=== PATIENT | female | born 1940 | race Caucasian/White ===

== ENCOUNTER → 2016-10-06 | Outpatient (CLI) | payer MEDICARE, BC ==
--- NOTE | 2016-10-06 16:36 | MAM ---
EXAM DESCRIPTION: 3D Screening BILATERAL CLINICAL HISTORY: 76 yearsFemaleSCREENING HRT five or more years ago. Postmenopausal. COMPARISON: Digital screening bilateral examination 09/28/2015 and 09/08/2014.. No prior reports available. TECHNIQUE: Bilateral CC and MLO projection full-field images, 3-D tomosynthesis digital mammographic technique. Also bilateral synthesized CC/ MLO full-field images. CAD not utilized. FINDINGS: The breast parenchymal density pattern is: Heterogeneously dense breast tissue, which may obscure small masses. No skin thickening or nipple retraction differences fibroglandular tissues around the posterior nipple line in the anterior two thirds and extending into the upper outer quadrants bilaterally. Bilateral solitary microcalcifications. Bilateral vascular calcifications. No focal, stellate mass or density, focal asymmetry , and no suspicious microcalcifications bilaterally. Stable mammograms compared to the studies August 2014. IMPRESSION: BI-RADS CATEGORY: 2 - BENIGN FINDINGS. FOLLOW UP: Routine digital bilateral screening, one year interval from September 2016. Written communication explaining the findings and follow-up, will be mailed to the patient and referring health care provider. According to the [employer], yearly mammograms are recommended starting at age 40 and continuing as long as a woman is in good health. Any breast change noted on a breast self-exam should be reported promptly to the patient's healthcare provider. Breast MRI is recommended for women with an approximately 20-25% or greater lifetime risk of breast cancer, including women with a strong family history of breast or ovarian cancer and women who have been treated for Hodgkin's disease. A negative mammographic report should not delay tissue diagnosis in patients with significant clinical history or physical findings. Extremely dense breast tissue limits the sensitivity of digital mammography. Electronically signed by: Heath Lei MD 10/06/2016 4:35 PM CDT Workstation: [id number]
== END ==
LOC: MAMMO 09:54
PROVIDERS: ATTEND Obstetrics & Gynecology
DX: Z12.31 Encounter for screening mammogram for malignant neoplasm of breast (principal)

== ENCOUNTER → 2017-10-17 | Outpatient (CLI) | payer MEDICARE, BC ==
--- NOTE | 2017-10-19 09:56 | MAM ---
EXAM DESCRIPTION: 3D Screening BILATERAL : Digital Mammography. CLINICAL HISTORY: 77 years Female SCREENING . No complaints. No family history of breast cancer. Childbirth. Postmenopausal. Has taken HRT 5 or more years ago. COMPARISON: 3-D digital screening bilateral study 10/06/2016.. Report from prior examination also reviewed. TECHNIQUE: Bilateral CC and MLO projection full-field images, 3-D tomosynthesis digital mammographic technique. CAD not utilized. FINDINGS: The breast parenchymal density pattern is: Heterogeneously dense breast tissue, which may obscure small masses. No skin thickening or nipple retraction. Bilateral solitary microcalcifications. No new focal, stellate mass or density, focal asymmetry , and no suspicious microcalcifications bilaterally. Stable mammograms compared to prior study, taking into account differences in mammographic technique. IMPRESSION: BI-RADS CATEGORY: 2 - BENIGN FINDINGS. FOLLOW UP: Routine digital bilateral screening, one year interval from September 2017. Written communication explaining the IMPRESSION and follow-up, will be mailed to the patient and referring health care provider. According to the [employer], yearly mammograms are recommended starting at age 40 and continuing as long as a woman is in good health. Any breast change noted on a breast self-exam should be reported promptly to the patient's healthcare provider. Breast MRI is recommended for women with an approximately 20-25% or greater lifetime risk of breast cancer, including women with a strong family history of breast or ovarian cancer and women who have been treated for Hodgkin's disease. A negative mammographic report should not delay tissue diagnosis in patients with significant clinical history or physical findings. Extremely dense breast tissue limits the sensitivity of digital mammography. Electronically signed by: Heath Lei MD 10/19/2017 9:55 AM CDT
== END ==
LOC: MAMMO 11:00
PROVIDERS: ATTEND Family Medicine
DX: Z12.31 Encounter for screening mammogram for malignant neoplasm of breast (principal)

== ENCOUNTER → 2018-12-04 | Outpatient (CLI) | payer MEDICARE, OTHER ==
--- NOTE | 2018-12-07 17:59 | MAM ---
EXAM DESCRIPTION: 3D Screening BILATERAL : Digital Mammography. CLINICAL HISTORY: 78 years Female ANNUAL SCREENING . No complaints. No personal or family history of breast cancer. Menarche age 15. No childbirth. Postmenopausal 25+ years. HRT 5 or more years ago. Lifetime risk of developing breast cancer (Tyrer-Cuzick model)(%): 4.0 COMPARISON: Bilateral screening digital breast tomosynthesis 10/17/2017. TECHNIQUE: Bilateral CC and MLO projection full-field images, digital tomosynthesis mammographic technique. Bilateral digital 2-D full-field MLO images. CAD not available for tomosynthesis or 2-D images. FINDINGS: The breast parenchymal density pattern is: Heterogeneously dense breast tissue, which may obscure small masses. Extremely dense breast tissue, which lowers the sensitivity of mammography. No skin thickening or nipple retraction. Bilateral solitary microcalcifications. A group of heterogeneous microcalcifications is developing in the upper outer quadrant of the posterior third of the left breast in the age of the dense fibroglandular tissues approximately 6 cm from the nipple. 9:30 position. Fewer calcifications on the prior study. No new focal, stellate mass or density, focal asymmetry , and no suspicious microcalcifications right breast. IMPRESSION: BI-RADS CATEGORY: 0 - INCOMPLETE- Need additional imaging evaluation. FOLLOW-UP: Recall for additional imaging: Digital spot magnification region of interest left breast CC and LM projections. LM full-field 2-D and tomosynthesis images. Optional directed left breast ultrasound of the region of interest.. Written communication concerning the IMPRESSION and Follow-up, will be mailed to the patient and referring health care provider. Electronically signed by: Heath Lei MD 12/07/2018 5:58 PM CDT
== END ==
LOC: MAMMO 11:30
PROVIDERS: ATTEND Family Medicine
DX: Z12.31 Encounter for screening mammogram for malignant neoplasm of breast (principal)

== ENCOUNTER → 2019-01-14 | Outpatient (CLI) | payer MEDICARE, OTHER ==
--- NOTE | 2019-01-14 16:31 | MAM ---
EXAM DESCRIPTION: Diagnostic Mammo,Left (accession [id number]), Breast,Left (accession [id number]): Ultrasound CLINICAL HISTORY: 78 yearsFemaleABNORMAL MAMMOGRAM microcalcifications upper outer quadrant left breast. COMPARISON: Bilateral screening digital breast tomosynthesis 04 December 2018. TECHNIQUE: Left breast LM projection full-field images, digital mammographic tomosynthesis technique. Left breast 2-D digital full-field images. LM and CC projections. Spot magnification upper outer quadrant left breast LM, CC, and MLO projections. CAD not available. . Transcutaneous scanning of the region of interest left breast utilizing sunshine-scale and Doppler modes. Scanning performed by the quill reamer ; supervision by Dr. Lei FINDINGS: The breast parenchymal density pattern is: Heterogeneously dense breast tissue, which may obscure small masses. No skin thickening or nipple retraction . The region of interest is at the 2:00-3:00 location of the left breast anterior middle third, approximately 3-4 cm from the nipple. The group of microcalcifications is heterogeneous and pleomorphic. No definite soft tissue mass. Ultrasound: Scanning upper-outer quadrant of the anterior middle third of the left breast with emphasis at the 2:00 location. Predominantly fibroglandular tissues with minimal fatty tissues. No dominant solid mass or distinct cyst. No parenchymal edema or large calcifications. No overlying skin changes. IMPRESSION: 1. BI-RADS Category 4: SUSPICIOUS. Sub-category 4A - Low Suspicion For Malignancy. 2. Surgical consultation and tissue diagnosis is recommended if there are no clinical contraindications. The FINDINGS and FOLLOW-UP plan were reviewed in person with the patient following the examination. Written communication explaining the IMPRESSION and FOLLOW-UP will be mailed to the patient and referring care provider. CRITICAL COMMUNICATION: The critical value was discussed directly by phone by Dr. Lei, with Dr. Latham at approximately 1442 hours, on 14 January 2019. Electronically signed by: Heath Lei MD 01/14/2019 4:30 PM CDT
== END ==
LOC: MAMMO 10:30
PROVIDERS: ATTEND Family Medicine
DX: R92.8 Other abnormal and inconclusive findings on diagnostic imaging of breast (principal)